=== PATIENT | male | born 1935 | race Caucasian/White ===

== ENCOUNTER 2018-06-10 11:53 | Day surgery (SDC) | payer MEDICARE, SELFPAY ==
[2018-06-10] VITALS (7 sets, daily range): BP systolic 158–181; BP diastolic 69–76; PULSE 40–63; RESP 14–18; TEMP 36.5–36.9; O2SAT 95–100; BMI 26.4
--- NOTE | 2018-06-10 16:40 | OP.PN_ITS ---
Immediate Post-Op Note Date of Procedure: 06/10/18 Primary Surgeon/Physician: Delon Dukes network security architect: None Description of Surgical Findings:: 83 year old man presents with a changing enlarging pigmented lesion on his left lateral neck that was recently shave biopsied on 05/15/18. Pathology showed a melanoma in situ, lentigo maligna type. He denies any trauma. He denies any bleeding. He presents at this time for further evaluation and treatment. Size of defect left lateral neck - 1 x 1 x 0.4 cm.
--- NOTE | 2018-06-10 16:42 | PCM.IMDPSTOP ---
Immediate Post-Op Note Date of Procedure: 06/10/18 Primary Surgeon/Physician: Delon Dukes heel breaster: None Pre-Operative Diagnosis: 6 mm melanoma in situ, lentigo maligna type, left lateral neck. Post-Operative Diagnosis: Same. Surgery/Procedure Performed:: Completion excision 6 mm melanoma in situ, lentigo maligna type, left lateral neck. Description of Surgical Findings:: 83 year old man presents with a changing enlarging pigmented lesion on his left lateral neck that was recently shave biopsied on 05/15/18. Pathology showed a melanoma in situ, lentigo maligna type. He denies any trauma. He denies any bleeding. Today the patient underwent completion excision 6 mm melanoma in situ, lentigo maligna type, left lateral neck. Size of defect left lateral neck - 1.2 x 1.2 x 0.4 cm. Estimated Blood Loss: 5 ml. Specimen's removed: Melanoma in situ, lentigo maligna type, left lateral neck to Pathology. Drains: None. Type of Anesthesia:: Local MAC - xylocaine with epinephrine and IV sedation. - Admit VTE Documentation VTE Present on Admission: No VTE Mechan Device Prophylaxis: SCD's VTE Pharm Prophylaxis ordered?: No
--- NOTE | 2018-06-10 16:49 | OP.PN_ITS ---
Immediate Post-Op Note Date of Procedure: 06/10/18 Primary Surgeon/Physician: Delon Dukes academic associate: None Pre-Operative Diagnosis: 6 mm melanoma in situ, lentigo maligna type, left lateral neck. Post-Operative Diagnosis: Same. Surgery/Procedure Performed:: Completion excision 6 mm melanoma in situ, lentigo maligna type, left lateral neck. Description of Surgical Findings:: 83 year old man presents with a changing enlarging pigmented lesion on his left lateral neck that was recently shave biopsied on 05/15/18. Pathology showed a melanoma in situ, lentigo maligna type. He denies any trauma. He denies any bleeding. Today the patient underwent completion excision 6 mm melanoma in situ, lentigo maligna type, left lateral neck. Size of defect left lateral neck - 1.2 x 1.2 x 0.4 cm. Estimated Blood Loss: 5 ml. Specimen's removed: Melanoma in situ, lentigo maligna type, left lateral neck to Pathology. Drains: None. Type of Anesthesia:: Local MAC - xylocaine with epinephrine and IV sedation. - Admit VTE Documentation VTE Present on Admission: No VTE Mechan Device Prophylaxis: SCD's VTE Pharm Prophylaxis ordered?: No
--- NOTE | 2018-06-10 16:54 | PCM.DC ---
You will use the following diet at home:: No restrictions Discharge Activity: May not drive while taking narcotic pain medications., May Shower - in two days after the dressing is removed in the office., - - no heavy lifting. keep head elevated. May shower in (days): 2 - after dressing removed in the office. May resume sexual activity in: No Restrictions Weight Bearing Status: Weight bearing as tolerated Lifting Restrictions: 10 lbs. Keep extremity elevated above heart level: - - elevate head. Call your doctor if your incision/area has: Continuous Slow Oozing, Sudden Increased Bleeding, Increased Pain/ Swelling, Increased Redness, Foul Smelling Discharge, Swelling at the incision site Call your doctor if you observe: Fever of 101 or Higher, Coldness, Increased Pain, Shortness of breath, Chest pain, Calf discomfort, Uncontrolled pain Suture Line Care: - - daily silver dressing changes after the initial operative dressing is removed in the office. Change Dressing in (Days):: 1 - will change dressing in office tomorrow. Cleanse incision/area with: - - may get the wound wet in the shower at the time of the dressing change beginning in two days. Allergies/Adverse Reactions: Allergies No Known Allergies Allergy (Unverified 06/04/18 10:17) Medications to take at Discharge apixaban 5 mg tablet 5 mg PO BID 05/30/18 atorvastatin 20 mg tablet 20 mg PO QHS 05/30/18 hydrochlorothiazide 12.5 mg tablet 12.5 mg PO DAILY 05/30/18 levothyroxine 100 mcg tablet 100 mcg PO DAILY 05/30/18 losartan 100 mg tablet 100 mg PO DAILY 05/30/18 omeprazole 20 mg capsule,delayed release 20 mg PO DAILY 05/30/18 Clindamycin HCl [Cleocin] 300 mg PO TID #15 cap 06/10/18 Lactobacillus Acidophilus/Fos [Acidophilus Probiotic Tablet] 1 ea PO BID #10 tab 06/10/18 Oxycodone HCl/Acetaminophen [Percocet 5/325] 1 tab PO 4X/DAY PRN PRN 4 Days #15 tab 06/10/18 The following prescriptions were given: Oxycodone HCl/Acetaminophen [Percocet 5/325] 1 tab PO 4X/DAY PRN PRN 4 Days #15 tab PRN Reason: Pain Lactobacillus Acidophilus/Fos [Acidophilus Probiotic Tablet] 1 ea PO BID #10 tab Clindamycin HCl [Cleocin] 300 mg PO TID #15 cap Primary Care Physician: Jose Miguel Weeks,Out of [Primary Care Provider] - Test Results: Test results from this visit will be discussed in further detail at your follow-up appointment, if applicable. Please Follow Up With: Delon Dukes MD When: tomorrow 06/11/18 at 130 pm. call [phone] if any questions. Proposed Discharge Date: 06/10/18
--- NOTE | 2018-06-10 16:59 | DCINST_ITS ---
You will use the following diet at home:: No restrictions Discharge Activity: May not drive while taking narcotic pain medications., May Shower - in two days after the dressing is removed in the office., - - no heavy lifting. keep head elevated. May shower in (days): 2 - after dressing removed in the office. May resume sexual activity in: No Restrictions Weight Bearing Status: Weight bearing as tolerated Lifting Restrictions: 10 lbs. Keep extremity elevated above heart level: - - elevate head. Call your doctor if your incision/area has: Continuous Slow Oozing, Sudden Increased Bleeding, Increased Pain/ Swelling, Increased Redness, Foul Smelling Discharge, Swelling at the incision site Call your doctor if you observe: Fever of 101 or Higher, Coldness, Increased Pain, Shortness of breath, Chest pain, Calf discomfort, Uncontrolled pain Suture Line Care: - - daily silver dressing changes after the initial operative dressing is removed in the office. Change Dressing in (Days):: 1 - will change dressing in office tomorrow. Cleanse incision/area with: - - may get the wound wet in the shower at the time of the dressing change beginning in two days. Allergies/Adverse Reactions: Allergies No Known Allergies Allergy (Unverified 06/04/18 10:17) Medications to take at Discharge apixaban 5 mg tablet 5 mg PO BID 05/30/18 atorvastatin 20 mg tablet 20 mg PO QHS 05/30/18 hydrochlorothiazide 12.5 mg tablet 12.5 mg PO DAILY 05/30/18 levothyroxine 100 mcg tablet 100 mcg PO DAILY 05/30/18 losartan 100 mg tablet 100 mg PO DAILY 05/30/18 omeprazole 20 mg capsule,delayed release 20 mg PO DAILY 05/30/18 Clindamycin HCl [Cleocin] 300 mg PO TID #15 cap 06/10/18 Lactobacillus Acidophilus/Fos [Acidophilus Probiotic Tablet] 1 ea PO BID #10 tab 06/10/18 Oxycodone HCl/Acetaminophen [Percocet 5/325] 1 tab PO 4X/DAY PRN PRN 4 Days #15 tab 06/10/18 The following prescriptions were given: Oxycodone HCl/Acetaminophen [Percocet 5/325] 1 tab PO 4X/DAY PRN PRN 4 Days #15 tab PRN Reason: Pain Lactobacillus Acidophilus/Fos [Acidophilus Probiotic Tablet] 1 ea PO BID #10 tab Clindamycin HCl [Cleocin] 300 mg PO TID #15 cap Primary Care Physician: Jose Miguel Weeks,Out of [Primary Care Provider] - Test Results: Test results from this visit will be discussed in further detail at your follow- up appointment, if applicable. Please Follow Up With: Delon Dukes MD When: tomorrow 06/11/18 at 130 pm. call [phone] if any questions. Proposed Discharge Date: 06/10/18
--- NOTE | 2018-06-10 18:14 | PCM.OPRPT ---
Report of Operation Date of Procedure: 06/10/18 Pre-Operative Diagnosis: 6 mm melanoma in situ, lentigo maligna type, left lateral neck. Post-Operative Diagnosis: Same. Surgery/Procedure Performed:: Completion excision 6 mm melanoma in situ, lentigo maligna type, left lateral neck. Description of Surgical Findings:: 83 year old man presents with a changing enlarging pigmented lesion on his left lateral neck that was recently shave biopsied on 05/15/18. Pathology showed a melanoma in situ, lentigo maligna type. He denies any trauma. He denies any bleeding. Patient was informed of the risks and complications of the procedure including alternatives to surgery. These were discussed with the patient personally. Patient voices understanding and wishes to proceed. Some of the risks and complications were included in a form from the [employer]. Size of defect left lateral neck - 1.2 x 1.2 x 0.4 cm. salesperson used cars: None Type of Anesthesia:: Local MAC - xylocaine with epinephrine and IV sedation. Specimen's removed: Melanoma in situ, lentigo maligna type, left lateral neck to Pathology. Drains: None. Estimated Blood Loss (mL): 5 ml. Description of Procedure: Patient was taken to OR in supine position and was given IV sedation. The left neck was prepped and draped in the usual fashion. SCD's were placed for DVT prophylaxis. Perioperative antibiotics were given intravenously. The lesion left lateral neck was infiltrated with xylocaine and epinephrine. After waiting 5 minutes for the anesthetic to take effect, a completion excision was performed with a scalpel in a circular fashion. The lesion was excised with a 3 mm margin in all directions into the superficial subcutaneous tissue thus making it a 1.2 cm excision. A suture was marked at the 12 oclock position for pathology orientation. The lesion was sent to pathology for analysis to rule out carcinoma at the margins. The size of the defect after the completion excision was 1.2 x 1.2 x 0.4 cm. Hemostasis was obtained with electrocautery. The wound was dressed with Aquacel Silver and secured with 4-0 Nylon tie over stent suture dressing. A gauze was then applied as a compression dressing as he is on Eliquis for atrial fibrillation. Patient tolerated the procedure well and was sent to PACU in satisfactory condition. Patient will be sent home on antibiotics and pain medication. Patient will followup in the office tomorrow for a wound check and a Silver dressing change and to instruct the family on the Silver dressing changes. Once the pathology report is available, will then schedule the next stage in the treatment of his melanoma in situ which is wide excision with a 5 mm margin down to the muscular fascia with a skin flap or skin graft reconstruction. Grafts/Implants Used: None. - Complications None. - Admit VTE Documentation VTE Present on Admission: No VTE Mechan Device Prophylaxis: SCD's VTE Pharm Prophylaxis ordered?: No Code Visit Surgery Charges CPT - 06329 ICD-10 - D03.4
== END 2018-06-10 17:43 | disposition home or self-care (01) ==
LOC: SDC 11:54
PROVIDERS: Referring Provider Surgery
PROC: (CPT 11622; principal; 2018-06-10 13:30)
DX: D03.4 Melanoma in situ of scalp and neck (principal); I48.91 Unspecified atrial fibrillation; I10 Essential (primary) hypertension; E03.9 Hypothyroidism, unspecified; E78.00 Pure hypercholesterolemia, unspecified; K21.9 Gastro-esophageal reflux disease without esophagitis; Z87.891 Personal history of nicotine dependence; Z79.82 Long term (current) use of aspirin; Z79.899 Other long term (current) drug therapy
CPT/HCPCS: 11622; 88305; 88341; 88342; J7120; A4216

== ENCOUNTER 2018-07-04 09:37 | Day surgery (SDC) | payer MEDICARE, SELFPAY ==
--- NOTE | 2018-07-04 | IMM_PTH ---
PATIENT: MAURICE PRATHER LOC: [facility] [place][id number] AGE/SX: 83/M ROOM: RE07/04/[address]: Dr. Delon Dukes MD : 1935 BED: DIS: 07/04/2018 SPEC #: [id number] RECD: 07/07/18 12:03 STATUS: WILL REKika #: [id number] ARACELI: 07/04/18 00:[address]: Delon Dukes DEPT: IMMUNOHISTOCHEMISTRY RECD BY: Carmine Luke ENTERED: 07/07/18 12:06 SP TYPE: IMMUNO OTHR DR: Out of [facility] Doctor Tissues: Skin of neck, NOS Procedures: CK5-6 (add) Vimentin (add) Pankeratin (initial) Pankeratin (add) MELAN-A (add) P40 (add) S-100 (add) PHYSICIAN & INSTITUTION [place] [address] SPECIMEN INFORMATION: Tissue Source: Wide excision melanoma in situ, left lateral neck Clinical Info: Melanoma in situ, lentigo maligna type, left lateral neck Specimen Number: [id number] CPT code: 12460, 67360 x14 METHODOLOGY: Deparaffinized sections of prefer/formalin-fixed tissue or PAP/DQ stained slides are incubated with monoclonal/polyclonal antibodies/oligonucleotide probes. Localization is made via biotin free immunoperoxidase method. Appropriate controls are performed and reacted as expected. Results on target cell population are indicated in the following table: RESULTS: ANTIBODY / CLONE RESULT Block 1 AE1-3 (AE1/AE3/PCK26) negative S-100 (4C4.9) negative Melan A (A103) positive Vimentin (V9) negative P40 (BC28)CK5-6 (D5 & 1684) negative Block 2 AE1-3 (AE1/AE3/PCK26) negative S-100 (4C4.9) negative Melan A (A103) positive Vimentin (V9) negative P40 (BC28)CK5-6 (D5 & 1684) negative Block 3 AE1-3 (AE1/AE3/PCK26) negative S-100 (4C4.9) negative Melan A (A103) positive Vimentin (V9) negative P40 (BC28)CK5-6 (D5 & 1684) negative These tests were developed and their performance characteristics determined by [facility]. They may not have been cleared or approved by the U.S. Food and Drug Administration. The FDA has determined that such clearance or approval is not necessary. INTERPRETATION: Skin of left lateral neck excision: - Ulcer and associated reactive change - Mild melanocytic hyperplasia - No evidence of melanoma This case was reviewed with Dr. Blackman who concurs with the above diagnosis. AM:yuan 07/08/18
--- NOTE | 2018-07-04 09:18 | HP.PCM_ITS ---
History and Physical Date of Admission: 07/04/18 Allergies No Known Allergies Allergy (Unverified 05/30/18 10:21) Medications apixaban 5 mg tablet 5 mg PO BID 05/30/18 [History Confirmed 05/30/18] aspirin 81 mg tablet,delayed release 81 mg PO DAILY 05/30/18 [History Confirmed 05/30/18] atorvastatin 20 mg tablet 20 mg PO DAILY 05/30/18 [History Confirmed 05/30/18] hydrochlorothiazide 12.5 mg tablet 12.5 mg PO DAILY 05/30/18 [History Confirmed 05/30/18] levothyroxine 100 mcg tablet 100 mcg PO DAILY 05/30/18 [History Confirmed 05/30/18] losartan 100 mg tablet 100 mg PO DAILY 05/30/18 [History Confirmed 05/30/18] omeprazole 20 mg capsule,delayed release 20 mg PO DAILY 05/30/18 [History Conf irmed 05/30/18] PFSH Medical History Anxiety disorder (Acute) Atrial fibrillation (Acute) Frequent headaches (Acute) Hypercholesterolemia (Acute) Hypoactive thyroid (Acute) Skin cancer (Acute) High blood pressure (Chronic) Surgical History History of total knee arthroplasty Completion excision 6 mm melanoma in situ, lentigo maligna type, left lateral neck - 06/10/18 Family History Son - Hypertension Social History Smoking Status: Former smoker second hand exposure: No substance use type: does not use additional social history: DOES USE ASPIRIN DOES USE IBUPROFEN HPI HISTORY OF PRESENT ILLNESS 83 year old man presents with a changing enlarging pigmented lesion on his left lateral neck that was recently shave biopsied on 05/15/18. Pathology showed a melanoma in situ, lentigo maligna type. He denies any trauma. He denies any bleeding. He underwent a completion excision on 06/10/18 and no further melanoma was seen. He has been doing daily dressing changes with Silver. He presents today for wide excision of his melanoma in situ with skin flap or skin graft reconstruction. REVIEW OF SYSTEMS General - Denies fever, fatigue, and weight loss. Eyes - Denies cataracts and glaucoma. ENT - Denies nasal congestion and sore throat. Endocrine - Denies excessive thirst and urination. Skin - Denies skin cancer. Has enlarging pigmented lesion left lateral neck that was recently shave biopsied and found to be a melanoma in situ, lentigo maligna type. Musculoskeletal - Denies joint pain, joint stiffness, weakness of muscles and joints, back pain, and arthritis. Neuro - Denies headaches. Cardiovascular - Denies chest pain, fatigue, and shortness of breath with exertion. Psych - Denies anxiety and depression. Respiratory - Denies chronic cough and shortness of breath. Gastrointestinal - Denies nausea, vomiting, diarrhea, and constipation. Hematologic - Denies abnormal bruising and bleeding. Genitourinary - Denies hematuria and urinary frequency. PHYSICAL EXAMINATION General - Alert and Oriented HEENT - PERRL. EOMI. Throat is clear. No suspicious lesions noted. Neck - Supple and nontender. No cervical adenopathy. On his left lateral neck is a healing wound from recent completion excision melanoma in situ on 06/10/18. Wound measures 1 cm. Wound is healing with granulation tissue. Lungs - Clear to auscultation. Heart - Regular rate and rhythm. Abdomen - Soft and nondistended. Extremities - FROM. No axillary adenopathy. Radial pulses are palpable. No suspicious lesions noted. Neuro - CN II-XII grossly intact. Psych - Normal mood and affect. ASSESSMENT 1. 6 mm melanoma in situ, lentigo maligna type, left lateral neck. 2. Open surgical melanoma wound left lateral neck. PLAN Discussed the treatment options for melanoma. Thus far it is a melanoma in situ but it is from a shave biopsy. Before proceeding with definitive treatment which is wide excision down to the muscular fascia with skin flap or skin graft reconstruction, we need to establish a diagnosis first. This entails a completion excision down into the superficial subcutaneous tissue. Will send the lesion to Pathology for analysis to rule out carcinoma. This is done to make sure there is not a deeper focus of melanoma present that may change the treatment course (such as size of margin as well as evaluation of the lymph nod es). A melanoma in situ requires a 5 mm margin. A thin melanoma (which is < 1 mm thick) requires a surgical margin of 1 cm. If the thickness of the melanoma is between 1 and 4 mm thick, it is considered an intermediate thickness melanoma. It requires a 2 cm margin. It is the intermediate thickness melanomas that require evaluation of the lymph nodes with a sentinel node biopsy. The sentinel node biopsy and possible lymph node resection would need to be done at a tertiary center. If the thickness of the melanoma is greater than 4 mm thick, it is considered a thick melanoma. Margin is 2-3 cm. With a melanoma, the wide excision extends down to the muscular fascia. After treatment, followup is every 3-6 months for a cancer skin check. He can coordinate with his PCP on a yearly basis for LFT's which include LDH and fractionated alkaline phosphatase and a yearly CXR. For the initial completion excision, the surgery can take place on an outpatient basis under local anesthesia and IV sedation. For the definitive wide excision of the melanoma, the surgery can take place on an outpatient basis under local anesthesia and IV sedation. Patient was informed of the risks and complications of the procedure including alternatives to surgery. These were discussed with the patient personally. Patient voices understanding and wishes to proceed. Some of the risks and complications were included in a form from the [employer]. Will schedule in the next 1-2 weeks.
[2018-07-04 10:40] VITALS: BP 169/90; PULSE 69; RESP 16; TEMP 36.5; O2SAT 98; BMI 26.4
--- NOTE | 2018-07-04 11:35 | LES_PTH ---
PATIENT: MAURICE PRATHER LOC: [facility] – [place] U#:[id number] AGE/SX: 83/M ROOM: RE07/04/[address]: Dr. Delon Dukes MD : 1935 BED: DIS: 07/04/2018 SPEC #: [id number] RECD: 07/04/18 15:48 STATUS: WILL JUDY #: [id number] ARACELI: 07/04/18 11:[address]: Delon Dukes DEPT: SURGICAL PATHOLOGY RECD BY: Carmine Luke ENTERED: 07/07/18 07:58 SP TYPE: Lesion OTHR DR: Out of [facility] Doctor Tissues: Skin of neck, NOS Procedures: Surgery Specimen Level IV HEADER OPERATION: Wide excision melanoma in situ, left lateral neck with skin PRE-OP DIAGNOSIS: Melanoma in situ 6mm, lentigo maligna type, left lateral neck. Open surgical melanoma wound left lateral neck TISSUE SUBMITTED: Wide excision melanoma in situ left lateral neck, suture at 12 o'clock MICROSCOPIC DIAGNOSIS Skin and soft tissue, left lateral neck, re-excision: Mild melanocytic hyperplasia. Ulceration with associated acute on chronic inflammation and granulation. Cicatrix. No evidence of malignancy. AM:jose cruz 07/07/18 COMMENT Immunohistochemistry ([id number]) supports the above diagnosis. MICROSCOPIC DESCRIPTION Slides are reviewed. GROSS DESCRIPTION Received in fixative is one container labeled with the patient's name and designated wide excision melanoma in situ, left lateral neck, sutured at 12 o'clock . The specimen consists of a blanchard and shaved piece of skin with underlying tissue measuring 2.5 x 2.5 cm and up to 0.5 cm in thickness. The specimen is inked as follows: 1 to 3 - black, 3 to 6 - black, 7 to 9 - green, 10 to 12 - yellow. Focal ulceration is noted on the surface consistent with previous biopsy site measuring 1 x 1 cm. The specimen is serially sectioned and submitted entirely in 3 cassettes as follows: #1 - 3 and 9 o'clock, # 2 & 3 - rest of the specimen. /REBECA:jose cruz 07/04/18 TC: 2 CPT: 03246
[2018-07-04] MEDS: Mupirocin Ointment 22gm Tube 1 APPLIC (13:00)
--- NOTE | 2018-07-04 13:03 | OP.PN_ITS ---
Immediate Post-Op Note Date of Procedure: 07/04/18 Primary Surgeon/Physician: Delon Dukes chemical instrumentation officer: None Pre-Operative Diagnosis: 1. 6 mm melanoma in situ, lentigo maligna type, left lateral neck. 2. Open surgical melanoma wound left lateral neck. Post-Operative Diagnosis: Same. Surgery/Procedure Performed:: Wide excision melanoma in situ left lateral neck with rhomboid transposition skin flap reconstruction (8 cm2). Description of Surgical Findings:: 83 year old man presents with a changing enlarging pigmented lesion on his left lateral neck that was recently shave biopsied on 05/15/18. Pathology showed a melanoma in situ, lentigo maligna type. He denies any trauma. He denies any bleeding. He underwent a completion excision on 06/10/18 and no further melanoma was seen. He has been doing daily dressing changes with Silver. Today the patient underwent wide excision melanoma in situ left lateral neck with rhomboid transposition skin flap reconstruction (8 cm2). Estimated Blood Loss: 5 ml. Specimen's removed: Melanoma in situ wound left lateral neck to Pathology. Drains: None. Type of Anesthesia:: Local MAC - xylocaine with epinephrine and IV sedation. - Admit VTE Documentation VTE Present on Admission: No VTE Mechan Device Prophylaxis: SCD's VTE Pharm Prophylaxis ordered?: No
--- NOTE | 2018-07-04 13:10 | PCM.DC ---
You will use the following diet at home:: No restrictions Discharge Activity: May not drive while taking narcotic pain medications., May Shower - in two days., - - keep head elevated. no heavy lifting. May shower in (days): 2 May resume sexual activity in: 10-14 days Ice area for (Minutes): 5 - as needed for swellig. Weight Bearing Status: Weight bearing as tolerated Lifting Restrictions: 10 lbs. Keep extremity elevated above heart level: - - elevate head. Call your doctor if your incision/area has: Continuous Slow Oozing, Sudden Increased Bleeding, Increased Pain/ Swelling, Increased Redness, Foul Smelling Discharge, Swelling at the incision site Call your doctor if you observe: Fever of 101 or Higher, Coldness, Increased Pain, Shortness of breath, Calf discomfort, Uncontrolled pain Suture Line Care: - - apply antibiotic ointment to suture line daily after dressing removed in two days. Remove Dressing in (days):: 2 Cleanse incision/area with: - - may get incision wet in the shower in two days. Additional Instructions: He may resume his Apixaban tomorrow 07/05/18. Allergies/Adverse Reactions: Allergies hydrocodone [From Vicodin] Adverse Reaction (Severe, Verified 07/02/18 10:14) NIGHTMARES Medications to take at Discharge atorvastatin 20 mg tablet 20 mg PO QHS 05/30/18 hydrochlorothiazide 12.5 mg tablet 12.5 mg PO DAILY 05/30/18 levothyroxine 100 mcg tablet 100 mcg PO DAILY 05/30/18 losartan 100 mg tablet 100 mg PO DAILY 05/30/18 omeprazole 20 mg capsule,delayed release 20 mg PO DAILY 05/30/18 Apixaban [Eliquis] 5 mg PO BID #0 07/04/18 Clindamycin HCl [Cleocin] 300 mg PO TID #15 cap 07/04/18 Lactobacillus Acidophilus/Fos [Acidophilus Probiotic Tablet] 1 ea PO BID #10 tab 07/04/18 Oxycodone HCl/Acetaminophen [Percocet 5/325] 1 tab PO 4X/DAY PRN PRN 5 Days #20 tab 07/04/18 The following prescriptions were given: Oxycodone HCl/Acetaminophen [Percocet 5/325] 1 tab PO 4X/DAY PRN PRN 5 Days #20 tab PRN Reason: Pain Lactobacillus Acidophilus/Fos [Acidophilus Probiotic Tablet] 1 ea PO BID #10 tab Clindamycin HCl [Cleocin] 300 mg PO TID #15 cap Primary Care Physician: Jose Miguel Weeks,Out of [Primary Care Provider] - Test Results: Test results from this visit will be discussed in further detail at your follow-up appointment, if applicable. Please Follow Up With: Delon Dukes MD When: one week. call [phone] for appt. Proposed Discharge Date: 07/04/18
[2018-07-04 13:12] VITALS: BP 156/82; BP 169/90; PULSE 65; RESP 16; TEMP 37; O2SAT 98
--- NOTE | 2018-07-04 13:14 | DCINST_ITS ---
You will use the following diet at home:: No restrictions Discharge Activity: May not drive while taking narcotic pain medications., May Shower - in two days., - - keep head elevated. no heavy lifting. May shower in (days): 2 May resume sexual activity in: 10-14 days Ice area for (Minutes): 5 - as needed for swellig. Weight Bearing Status: Weight bearing as tolerated Lifting Restrictions: 10 lbs. Keep extremity elevated above heart level: - - elevate head. Call your doctor if your incision/area has: Continuous Slow Oozing, Sudden Increased Bleeding, Increased Pain/ Swelling, Increased Redness, Foul Smelling Discharge, Swelling at the incision site Call your doctor if you observe: Fever of 101 or Higher, Coldness, Increased Pain, Shortness of breath, Calf discomfort, Uncontrolled pain Suture Line Care: - - apply antibiotic ointment to suture line daily after dressing removed in two days. Remove Dressing in (days):: 2 Cleanse incision/area with: - - may get incision wet in the shower in two days. Additional Instructions: He may resume his Apixaban tomorrow 07/05/18. Allergies/Adverse Reactions: Allergies hydrocodone [From Vicodin] Adverse Reaction (Severe, Verified 07/02/18 10:14) [place]ES Medications to take at Discharge atorvastatin 20 mg tablet 20 mg PO QHS 05/30/18 hydrochlorothiazide 12.5 mg tablet 12.5 mg PO DAILY 05/30/18 levothyroxine 100 mcg tablet 100 mcg PO DAILY 05/30/18 losartan 100 mg tablet 100 mg PO DAILY 05/30/18 omeprazole 20 mg capsule,delayed release 20 mg PO DAILY 05/30/18 Apixaban [Eliquis] 5 mg PO BID #0 07/04/18 Clindamycin HCl [Cleocin] 300 mg PO TID #15 cap 07/04/18 Lactobacillus Acidophilus/Fos [Acidophilus Probiotic Tablet] 1 ea PO BID #10 tab 07/04/18 Oxycodone HCl/Acetaminophen [Percocet 5/325] 1 tab PO 4X/DAY PRN PRN 5 Days #20 tab 07/04/18 The following prescriptions were given: Oxycodone HCl/Acetaminophen [Percocet 5/325] 1 tab PO 4X/DAY PRN PRN 5 Days #20 tab PRN Reason: Pain Lactobacillus Acidophilus/Fos [Acidophilus Probiotic Tablet] 1 ea PO BID #10 tab Clindamycin HCl [Cleocin] 300 mg PO TID #15 cap Primary Care Physician: Jose Miguel Weeks,Out of [Primary Care Provider] - Test Results: Test results from this visit will be discussed in further detail at your follow- up appointment, if applicable. Please Follow Up With: Delon Dukes MD When: one week. call [phone] for appt. Proposed Discharge Date: 07/04/18
[2018-07-04 13:20] VITALS: BP 156/97; BP 169/90; PULSE 62; RESP 16; O2SAT 95
[2018-07-04 13:25] VITALS: BP 116/92; BP 169/90; PULSE 60; RESP 16; O2SAT 100
[2018-07-04 13:30] VITALS: BP 166/82; BP 169/90; PULSE 60; RESP 16; TEMP 36.7; O2SAT 100
[2018-07-04 14:02] VITALS: BP 169/90
--- NOTE | 2018-07-04 20:48 | PCM.OPRPT ---
Report of Operation Date of Procedure: 07/04/18 Pre-Operative Diagnosis: 1. 6 mm melanoma in situ, lentigo maligna type, left lateral neck. 2. Open surgical melanoma wound left lateral neck. Post-Operative Diagnosis: Same. Surgery/Procedure Performed:: Wide excision melanoma in situ left lateral neck with rhomboid transposition skin flap reconstruction (8 cm2). Description of Surgical Findings:: 83 year old man presents with a changing enlarging pigmented lesion on his left lateral neck that was recently shave biopsied on 05/15/18. Pathology showed a melanoma in situ, lentigo maligna type. He denies any trauma. He denies any bleeding. He underwent a completion excision on 06/10/18 and no further melanoma was seen. He has been doing daily dressing changes with Silver. Patient was informed of the risks and complications of the procedure including alternatives to surgery. These were discussed with the patient personally. Patient voices understanding and wishes to proceed. Some of the risks and complications were included in a form from the [employer]. analyst sales: None Type of Anesthesia:: Local MAC - xylocaine with epinephrine and IV sedation. Specimen's removed: Melanoma in situ wound left lateral neck to Pathology. Drains: None. Estimated Blood Loss (mL): 5 ml. Description of Procedure: Patient was taken to OR in supine position and was given IV sedation. The left lateral neck was prepped and draped in the usual fashion. SCD's were placed for DVT prophylaxis. Perioperative antibiotics were given intravenously. The left lateral neck melanoma in situ wound was infiltrated with xylocaine and epinephrine. After waiting 5 minutes for the anesthetic to take effect, I proceeded with wide excision of this melanoma in situ with a 5 mm margin in a rhomboid fashion down to the muscular fascia. A portion of the great auricular nerve was seen at the edge of the excision and was preserved. A suture was marked at the 12 oclock position for pathology orientation. The lesion was then sent to Pathology for analysis to rule out carcinoma at the margins. A rhomboid flap was designed adjacent to the defect and elevated on a subcutaneous pedicle down to the muscular fascia. The flap was easily transposed into the defect with minimal tension and minimal distortion. Hemostasis was obtained with electrocautery. After transposing the flap into the defect, the wound was closed in multiple layers with 5-0 Monocryl interrupted sutures for the deep dermis and subcutaneous tissue. The skin was approximated with 5-0 Prolene simple interrupted and vertical mattress sutures. Antibiotic ointment was applied to the suture line followed by a gauze dressing. The size of the defect and the size of the flap needed to close the defect was 8 cm2. Patient tolerated the procedure well and was sent to PACU in satisfactory condition. Patient will be sent home on antibiotics and pain medication. Patient will followup in a week for a wound check and for discussion of the pathology report and for removal of the sutures. Grafts/Implants Used: None. - Complications None. - Admit VTE Documentation VTE Present on Admission: No VTE Mechan Device Prophylaxis: SCD's VTE Pharm Prophylaxis ordered?: No Code Visit Surgery Charges CPT - 90492 ICD-10 - D03.4, S11.90xA, Z87.891
== END 2018-07-04 14:04 | disposition home or self-care (01) ==
LOC: SDC 09:37 → AC 10:13
PROVIDERS: Referring Provider Surgery; Visit Provider Surgery
PROC: (CPT 14040; principal; 2018-07-04 11:20)
DX: D03.4 Melanoma in situ of scalp and neck (principal); I48.91 Unspecified atrial fibrillation; I10 Essential (primary) hypertension; E78.00 Pure hypercholesterolemia, unspecified; E03.9 Hypothyroidism, unspecified; K21.9 Gastro-esophageal reflux disease without esophagitis; Z79.82 Long term (current) use of aspirin; Z79.01 Long term (current) use of anticoagulants; Z79.899 Other long term (current) drug therapy; Z87.891 Personal history of nicotine dependence
CPT/HCPCS: 00300; 14040; 88305; 88341; 88342; J7120